=== PATIENT | female | born 1995 | race Two or more races ===

== ENCOUNTER 2021-01-04 22:08 | Emergency (ER) | payer OTHER ==
[~2021-01-04] VITALS: Ht 160 cm; Wt 116.3 kg
--- NOTE | 2021-01-04 22:24 | NUR ---
INITIAL PT CONTACT. PT PRESENTS TO ED C/O VAGINAL CYST X ONE WEEK, SEEN AT YESTERDAY FOR SAME AND GIVEN ABX. NO IMPROVEMENT WITH ABX. "IT FEELS LIKE A KNIFE IS A STABBING ME, IT HURTS SO BAD. I CANT EVEN SIT DOWN". +VAGINAL DC, DENIES DYSURIA OR OTHER URINARY COMPLAINTS. PT SITTING UPRIGHT ON GURNEY, NADN, VSS. PT DENIES ANY NEEDS AT THIS TIME. CALL LIGHT AND PERSONAL BELONGINGS WITHIN WITHIN REACH. WARM BLANKET PROVIDED. AWAITING ERP.
[2021-01-04] MEDS ORDERED: PROPOFOL 10 MG/ML, 20ML ONE (22:51)
[2021-01-04] MEDS ORDERED: MORPHINE SULFATE 4 MG/ML, 1ML ONE ×2 (22:51→23:58)
[2021-01-04] MEDS: MORPHINE SULFATE 4 MG/ML, 1ML IVPush PRN (22:58)
[2021-01-04] MEDS ORDERED: SODIUM CHLORIDE 0.9% 1,000ML IVBOLUS ONE (23:00)
[2021-01-04] MEDS ORDERED: PROPOFOL 10 MG/ML, 20ML IVPush ONE (23:00)
[2021-01-04] MEDS ORDERED: SODIUM CHLORIDE FLUSH 10ML SYR IVF ONE (23:00)
--- NOTE | 2021-01-04 23:27 | NUR ---
PROCEDURAL SEDATION PERFORMED WITH ERP DR. GAY AND CLAY MURRIETA FOR RIGHT SIDE VAGINAL/VULVA I&D. INFORMED CONSENT AT BEDSIDE. SUCTION, BVM AND EMERGENCY EQUIPMENT AVAILABLE AT BEDSIDE. PT PLACED ON CONTINUOUS PULSE OX, CARDIAC AND CO2 MONITORING. PT VERBALIZED UNDERSTANDING OF PROCEDURE AND RISKS ASSOCIATED. SEE PAPER SEDATION CHARTING.
--- NOTE | 2021-01-04 23:38 | NUR ---
PROCEDURE END. PT TOLERATED WELL. DRESSING APPLIED. WILL CONTINUE TO MONITOR PT CLOSELY. VITALS REMAIN STABLE. TOTAL ADMIN OF PROPOFOL: 380MG. EXCESS PROPOFOL WASTED, 20MG, WITH VISHAL Burnette RN.
[2021-01-05] MEDS: MORPHINE SULFATE 4 MG/ML, 1ML IVPush PRN
--- NOTE | 2021-01-05 | NUR ---
PT RETURNED TO PRE-PROCUDRE BASELINE. A&OX4, RESPIRATIONS EQUAL AND UNLABORED, ABLE TO COUGH, CONVERSING WITH STAFF APPROPRIATELY. PT C/O PAIN, REQUESTING ADDITIONAL PAIN MEDICATION, ERP AWARE. CALL LIGHT AND BELONGINGS WITHIN REACH.
[2021-01-05] MEDS ORDERED: HYDROmorphone 2 MG/ML, 1ML ONE (00:24)
[2021-01-05] MEDS ORDERED: HYDROmorphone 1 MG/ML, 1ML INJ IVPush PRN (01:00)
[2021-01-05] MEDS ORDERED: HYDROcodone/APAP 5/325 TABLET PO PRN (01:00)
--- NOTE | 2021-01-05 01:02 | NUR ---
PT SITTING UPRIGHT ON GURNEY, RESTING COMFORTABLY WITH EYES CLOSED. PT REPORTS PAIN RELIEF FOLLOWING MD ADMIN. PT DENIES ANY ADDITIONAL NEEDS AT THIS TIME. CALL LIGHT AND PERSONAL BELONGINGS WITHIN REACH.
--- NOTE | 2021-01-05 01:29 | NUR ---
Covering primary nurse for break, pt sleeping wakes up with verbal. VSS. RR equal and unlabored.
[2021-01-05] MEDS ORDERED: ONDANSETRON ODT 4 MG ONE (02:42)
[2021-01-05 02:49] VITALS: BP 128/77
--- NOTE | 2021-01-05 02:51 | NUR ---
Patient given discharge instructions and they have confirmed that they understand the instructions. Patient ambulatory with steady gait, A&OX4, verbalized understanding of D/C instructions
[2021-01-05] MEDS ORDERED: ONDANSETRON ODT 4 MG PO ONE (03:00)
== END 2021-01-05 02:51 | disposition home or self-care (01) ==
LOC: ED 01-05 00:19
DX: N76.0 Acute vaginitis (principal); R10.2 Pelvic and perineal pain
CPT/HCPCS: 56405; 87070; 87075; 87076; 87077; 87205; 96361; 96374; 96375; 96376; 99152; 99285; J1170; J2270; J7030; Q0162

== ENCOUNTER 2021-01-10 17:38 | Emergency (ER) | payer OTHER ==
[~2021-01-10] VITALS: Ht 160 cm; Wt 114.5 kg
--- NOTE | 2021-01-10 18:25 | NUR ---
Pt to room from triage without gait disturbance noted, changing into gown and awaiting MD.
--- NOTE | 2021-01-10 18:47 | NUR ---
auto inspection specialist completed. Warm blanket provided and call light in reach. Pt states cyst I&D with packing to vaginal labia area and told to return today for packing removal. Awaiting MD exam.
[2021-01-10] MEDS ORDERED: ONDA4TAB7 PO (18:52)
[2021-01-10] MEDS ORDERED: HYDR-1067 PO ×2 (18:52)
--- NOTE | 2021-01-10 19:43 | NUR ---
PA at bedside for exam. This RN at bedside as boxcar weigher for PA as he removes vaginal packing from I&D site and does digital palpation of area after removal of packing. Pt tolerated well and dressing back into her own clothes.
[2021-01-10 20:08] VITALS: BP 122/74
== END 2021-01-10 20:14 | disposition home or self-care (01) ==
LOC: ED 20:00
DX: N76.4 Abscess of vulva (principal); L98.9 Disorder of the skin and subcutaneous tissue, unspecified
CPT/HCPCS: 99281